=== PATIENT | male | born 1940 | race Caucasian/White ===

== ENCOUNTER 2016-08-22 07:41 | Emergency (ER) | payer MEDICARE ==
[2016-08-22 07:57] VITALS: BMI 23.6
[2016-08-22] MEDS ORDERED: MORPHINE 4 MG/ML INJECTION IV ONE (08:39)
[2016-08-22] MEDS ORDERED: NS 1,000 ML IV ONE (08:39)
--- NOTE | 2016-08-22 08:41 | EDPRACDOC ---
- General Information Chief Complaint: Shoulder Pain Stated Complaint: SHOULDER AND EAR PAIN Time Seen by Provider: 08/22/16 08:27 Mode of Arrival: Car Home Medications: Home Medications Aspirin [Chewable Aspirin] 81 mg PO . DIR SEE COMMENTS 08/02/12 Atorvastatin Calcium [Lipitor] 40 mg PO QHS 12/24/15 Carvedilol [Coreg] 6.25 mg PO BID 12/24/15 Enalapril Maleate [Vasotec] 20 mg PO BID 12/24/15 Famotidine 40 mg PO BID 12/24/15 Metformin HCl [Metformin HCl ER] 500 mg PO HS 12/24/15 Prasugrel HCl [Effient] 10 mg PO QAM 12/24/15 Cyanocobalamin (Vitamin B-12) [B-12] 1,000 mcg PO DAILY 08/22/16 Diazepam [Valium] 5 mg PO Q6 #30 tablet 08/22/16 [place]-3S/Dha/Epa/Fish Oil [Fish Oil 1,200 mg Softgel] 1 each PO DAILY 08/22/16 Oxycodone Immediate Release [Oxycodone Immediate Release (OxyIR)] 5 - 15 mg PO Q4H PRN #30 tab 08/22/16 Prednisone [Deltasone, Orasone] 10 mg PO .TAPER #42 tab 08/22/16 Allergies/Adverse Reactions: Allergies Allergy/AdvReac Type Severity Reaction Status Date / Time Penicillins Allergy Anaphylaxis Verified 08/22/16 07:57 * - History of Present Illness Onset: SAT HPI: NECK PAIN STARTING 3 DAYS AGO. RADIATES TO BILATERAL" LEADERS" TO SHOULDERS. AGGRAVATED BY MOVEMENT OF THE NECK OR EITHER SHOULDER. ALLEVIATED BY LYING PERFECTLY STILL. ASSOCIATED WITH FEVER AND DIAPHORESIS WHEN IT 1ST STARTED. NO NUMBNESS TINGLING OR WEAKNESS. BUT THE PAIN DOES SEEM TO RADIATE DOWN TOWARDS HIS BASELINE NOW. NO TRAUMA, NO SORE THROAT, NO OTHER MYALGIAS. ED Past Medical History - History Reviewed Yes Nurses notes reviewed and agree except as marked - Patient Medical History Cardiac History: Reports: Hypertension, Heart Attack, Hypercholesterolemia GI/ History: Reports: Gastroesophageal Reflux Systemic History: Reports: Diabetes. Denies: Cancer Surgical History: Reports: Other (BACK) - Social Medical History Smoking Status: Never smoker ETOH: None Substance Abuse: None Lives With: Family Lives In: Home EDM Review of Systems - Review of Systems ROS Negative Except as Marked: Yes All systems reviewed and were negative except as marked Constitutional: Fever - Physical Exam Constitutional: Alert, Distress (UNCOMFORTABLE WITH PAIN), Other (LYING VERY STILL.) Oriented to: Time, Person, Place Last recorded Vital Signs: Last Vital Signs Temp 98.1 F 08/22/16 07:48 Pulse 76 08/22/16 07:48 Resp 18 08/22/16 07:48 BP 137/83 08/22/16 07:48 Pulse Ox 98 08/22/16 07:48 Oxygen Pulse Oxygen Saturation 98 O2 Device Oxygen Flow Rate Fraction of Inspired Oxygen ( FIO2) - HEENT Head: Normal Eye Exam: Normal Oropharynx: Normal Neck: Bony Tenderness, Limited ROM (SECONDARY TO PAIN), Paraspinal Tenderness. negative: In Collar - Respiratory/Cardiovascular Respiratory: Normal - CTA Cardiovascular: Normal - GI Auscultation: Normal Palpation: Normal Tenderness: Non tender - Musculoskeletal Back: Normal. negative: Abrasion, Ecchymosis, Laceration, Thoracic Step-off, Lumbar Step-off, Thoracic TTP, Lumbar TTP Extremities: Normal - Integumentary Skin: Normal, Warm, Dry - Neurologic Memory Impaired: Normal Motor Function: Normal Mood Description: Anxious Thought: Coherent Neurologic Comment: Right Left Shoulder Abduction 5/5 5/5 Shoulder Adduction 5/5 5/5 Bicept Flexion 5/5 5/5 Tricept Extention 5/5 5/5 Wrist Dorsiflexion 5/5 5/5 Wrist Volarflexion 5/5 5/5 Hip Flexion 5/5 5/5 Hip Extension 5/5 5/5 Quad Extension 5/5 5/5 Hamstring Flexion 5/5 5/5 Foot Dorsiflexion 5/5 5/5 Foot Plantarflexion 5/5 5/5 SENSATION NORMAL OVER THE RADIAN, ULNAR, MEDIAN, AXILLARY NERVE DISTRIBUTION BILATERALLY. THE RADIAL AND ULNAR ARTERY ARE 2+ BILATERALLY. - Differential Diagnosis Other (EPIDURAL ABSCESS, DISKITIS, NEXT TIGHTENED FASCIITIS, MYOSITIS) - Re-evaluation Re-evaluation 2 Re-evaluation Time: 13:02 (PAIN CONTROLLED. PT COMFORTABLE LONG HE IS LAYING STILL.) - Results 08/22/16 08:50 08/22/16 08:50 - Diagnostic Imaging C-spine Image interpreted by: Radiologist Patient Name: MELISSA MCCORMACK JR LOC: ED : 1940 AGE: 75 Order Date:08/22/16 Date of Service: Report # [id number] Ord Physician: Olivia Ibanez MD Exam # [id number] Emergency Physician: Olivia Ibanez MD Exam(s): [id number] CT/CT NECK W/ CM CLINICAL DATA: 75-year-old male with posterior neck pain radiating inferiorly between the shoulder blades. Posterior cervical spine soft tissue edema on MRI earlier today. Initial encounter. EXAM: CT NECK WITH CONTRAST TECHNIQUE: Multidetector CT imaging of the neck was performed using the standard protocol following the bolus administration of intravenous contrast. CONTRAST: 100 mL Isovue 370 COMPARISON: Cervical spine MRI 0920 hours today. FINDINGS: The patchy abnormal STIR signal in the midline an just off midline in the upper posterior cervical soft tissues (C2 and C3) is largely an apparent on CT, the soft tissues in annotated with arrows on series 2, image 43 are affected on MRI. There is mild minimal regional fat stranding by CT, only on series 2, image 35. No subcutaneous gas. No associated fluid collection. Pharynx and larynx: Larynx and pharynx contours are within normal limits. Negative parapharyngeal and retropharyngeal spaces. Salivary glands: Sublingual space, submandibular glands, and parotid glands are within normal limits. Thyroid: Negative. Lymph nodes: No cervical lymphadenopathy. Vascular: Major vascular structures in the neck and at the skullbase are patent. There are mildly prominent posterior venous collaterals about the cervical spine again noted. The left vertebral artery is dominant. The proximal great vessels are diffusely tortuous. There is bilateral carotid atherosclerosis. Limited intracranial: Negative. Visualized orbits: Negative. Mastoids and visualized paranasal sinuses: Minimal right sphenoid sinus mucosal thickening. Left tympanic cavity and mastoids are clear. There is partially dense/ calcified abnormal opacity in the right EAC which appears to have eroded into the right mastoids (series 2, image 17). The right tympanic cavity remains largely pneumatized but there is a mild to moderate right mastoid effusion. No other mastoid bone erosion identified. No soft tissue inflammation surrounding the right mastoid. The right sigmoid sinus remains patent. Skeleton: Right mastoid bone erosion as above. Degenerative changes in the cervical spine. Absent dentition. Exaggerated upper thoracic kyphosis. Osteopenia. No acute osseous abnormality identified. Upper chest: Upper lobe pulmonary septal thickening and peripheral increased reticular opacity in both lungs. Visible Major airways are patent. No superior mediastinal lymphadenopathy. No axillary lymphadenopathy. Calcified aortic atherosclerosis. IMPRESSION: 1. Posterior upper cervical spine soft tissue inflammation seen by MRI today is largely occult on CT. Differential considerations include mild cellulitis versus granulation tissue (postoperative or posttraumatic). No subcutaneous gas. No abscess or fluid collection. 2. 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 Right mastoid effusion. Recommend ENT follow-up. 3. No other acute findings in the neck. 4. Chronic interstitial lung disease suspected. Calcified aortic and carotid atherosclerosis. Electronically Signed By: Karuna Paez M.D. On: 08/22/2016 13:45 Electronically Signed By: Karuna Paez III, MD Electronically Signed Date/Time: [id number] Dictate Date/Time: 08/22/16 1334 Technologist: Marcelino Everett Transcribed By: Sara Transcribed Date/Time: 08/22/16 1345 Patient Name: MELISSA MCCORMACK JR Courtesy Copy to: Diagnostic Imaging Report [facility] [address] [place] [address] [phone] Diagnostic Imaging Services Courtesy Copy to: Diagnostic Imaging Report Patient Name: MELISSA MCCORMACK JR LOC: ED : 1940 AGE: 75 Order Date:08/22/16 Date of Service: Report # [id number] Ord Physician: Olivia Ibanez MD Exam # [id number] Emergency Physician: Olivia Ibanez MD Exam(s): [id number] MRI/MRI CERVICAL SPINE WO/W CM CLINICAL DATA: Cervical pain with radiculopathy and fever EXAM: MRI CERVICAL SPINE WITHOUT AND WITH CONTRAST TECHNIQUE: Multiplanar and multiecho pulse sequences of the cervical spine, to include the craniocervical junction and cervicothoracic junction, were obtained according to standard protocol without and with intravenous contrast. CONTRAST: 18 mL MultiHance IV COMPARISON: MRI 08/21/2012 FINDINGS: Image quality is suboptimal due to motion. Due to cervical lordosis and inability to lay flat, the anterior neck coil was not utilized which decreases image quality. Normal cervical alignment with accentuated cervical lordosis. Negative for fracture. Soft tissue edema posteriorly in the midline at the C3 and C4 level. This shows mild enhancement and is localized to the midline. Question enhancing scar tissue. Possible posterior neck operation. This does not appear to represent a mass or abscess. Spinal cord signal normal. No cord compression. C2-3: Negative. C3-4: Disc degeneration and spurring with mild foraminal narrowing bilaterally and mild spinal stenosis. C4-5: Disc degeneration and spondylosis. Mild spinal stenosis. Bilateral facet degeneration with mild to moderate foraminal encroachment bilaterally appear C5-6: Disc and facet degeneration causing foraminal encroachment bilaterally and mild spinal stenosis C6-7: Disc and facet degeneration causing moderate foraminal encroachment bilaterally C7-T1: Negative IMPRESSION: Cervical disc degeneration and spondylosis similar to 2012 with foraminal and spinal stenosis as described above. Posterior soft tissue edema and enhancement in the midline at C3 and C4 of uncertain etiology. This does not appear to represent an abscess or tumor. This may be enhancing scar tissue from prior neck surgery. Correlate with clinical history. Electronically Signed By: Red Munoz M.D. On: 08/22/2016 11:34 Electronically Signed By: Eran Munoz Jr, MD Electronically Signed Date/Time: [id number] Dictate Date/Time: 08/22/16 1116 Technologist: Teressa Riley Transcribed By: Sara Transcribed Date/Time: 08/22/16 1134 - Additional Information PAIN OUT OF PROPORTION TO EXAM. - Departure Yes I personally saw and evaluated the patient. Disposition: Home Condition: Stable Final Diagnosis: Cervical strain, acute Instructions: Cervical Strain (ED) Referrals: Ryley Min MD [Primary Care Provider] - One Week Yony Carrion MD [Staff Physician] - 08/25/16 8:00 am Prescriptions: New Diazepam [Valium] 5 mg PO Q6 #30 tablet Oxycodone Immediate Release [Oxycodone Immediate Release (OxyIR)] 5 - 15 mg PO Q4H PRN #30 tab PRN Reason: Pain Prednisone [Deltasone, Orasone] 10 mg PO .TAPER #42 tab No Action Aspirin [Chewable Aspirin] 81 mg PO . DIR SEE COMMENTS Prasugrel HCl [Effient] 10 mg PO QAM Atorvastatin Calcium [Lipitor] 40 mg PO QHS Metformin HCl [Metformin HCl ER] 500 mg PO HS Famotidine 40 mg PO BID Carvedilol [Coreg] 6.25 mg PO BID Enalapril Maleate [Vasotec] 20 mg PO BID Cyanocobalamin (Vitamin B-12) [B-12] 1,000 mcg PO DAILY [place]-3S/Dha/Epa/Fish Oil [Fish Oil 1,200 mg Softgel] 1 each PO DAILY - Physician Consulted Surgery Time Called: 14:06 Provider Called: Yony Carrion Time Patch Driller Returned Call: 14:07 (NON INFECTOUS, INFLAMMATION, MEDROL DOSE)
[2016-08-22 09:11] LABS: AUTOMATED BASOPHIL 0.4 % (0-2); AUTOMATED EOSINOPHIL 2.4 % (0-5); AUTOMATED LYMPH 26.1 % (17-44); AUTOMATED MONOCYTE 10.7 % (3-10); AUTOMATED NEUTROPHIL 60.4 % (45-76); MPV 8.5 fL (7.4-10.4)
[2016-08-22 09:28] LABS: BLOOD UREA NITROGEN 18 MG/DL (9-20); CALC CORRECTED 9.3 MG/DL (8.4-10.2); CALCIUM 8.8 MG/DL (8.4-10.2); CALCULATED OSMOLALITY 267 MOs/Kg (270-290); CHLORIDE 100 mEq/L (98-107); CRP-QUANTITATIVE 51.8 mg/L (<10.0); GLUCOSE 156 MG/DL (70-99); SODIUM LEVEL 136 mEq/L (137-146); TOTAL PROTEIN 6.8 G/DL (6.3-8.2)
--- NOTE | 2016-08-22 11:36 | DIRPT ---
CLINICAL DATA: Cervical pain with radiculopathy and fever EXAM: MRI CERVICAL SPINE WITHOUT AND WITH CONTRAST TECHNIQUE: Multiplanar and multiecho pulse sequences of the cervical spine, to include the craniocervical junction and cervicothoracic junction, were obtained according to standard protocol without and with intravenous contrast. CONTRAST: 18 mL MultiHance IV COMPARISON: MRI 08/21/2012 FINDINGS: Image quality is suboptimal due to motion. Due to cervical lordosis and inability to lay flat, the anterior neck coil was not utilized which decreases image quality. Normal cervical alignment with accentuated cervical lordosis. Negative for fracture. Soft tissue edema posteriorly in the midline at the C3 and C4 level. This shows mild enhancement and is localized to the midline. Question enhancing scar tissue. Possible posterior neck operation. This does not appear to represent a mass or abscess. Spinal cord signal normal. No cord compression. C2-3: Negative. C3-4: Disc degeneration and spurring with mild foraminal narrowing bilaterally and mild spinal stenosis. C4-5: Disc degeneration and spondylosis. Mild spinal stenosis. Bilateral facet degeneration with mild to moderate foraminal encroachment bilaterally appear C5-6: Disc and facet degeneration causing foraminal encroachment bilaterally and mild spinal stenosis C6-7: Disc and facet degeneration causing moderate foraminal encroachment bilaterally C7-T1: Negative IMPRESSION: Cervical disc degeneration and spondylosis similar to 2013 with foraminal and spinal stenosis as described above. Posterior soft tissue edema and enhancement in the midline at C3 and C4 of uncertain etiology. This does not appear to represent an abscess or tumor. This may be enhancing scar tissue from prior neck surgery. Correlate with clinical history. Electronically Signed By: Red Munoz M.D. On: 08/22/2016 11:34
[2016-08-22] MEDS ORDERED: Pharmacy Review for Metformin - IV Contrast Given SCH (13:00)
[2016-08-22 13:03] VITALS: TEMP 98.1
[2016-08-22] MEDS ORDERED: Clindamycin 600 mg/D5W 50 ml 600 MG/50 ML IVB IV ONE (13:05)
--- NOTE | 2016-08-22 13:47 | DIRPT ---
CLINICAL DATA: 75-year-old male with posterior neck pain radiating inferiorly between the shoulder blades. Posterior cervical spine soft tissue edema on MRI earlier today. Initial encounter. EXAM: CT NECK WITH CONTRAST TECHNIQUE: Multidetector CT imaging of the neck was performed using the standard protocol following the bolus administration of intravenous contrast. CONTRAST: 100 mL Isovue 370 COMPARISON: Cervical spine MRI 0920 hours today. FINDINGS: The patchy abnormal STIR signal in the midline an just off midline in the upper posterior cervical soft tissues (C2 and C3) is largely an apparent on CT, the soft tissues in annotated with arrows on series 2, image 43 are affected on MRI. There is mild minimal regional fat stranding by CT, only on series 2, image 35. No subcutaneous gas. No associated fluid collection. Pharynx and larynx: Larynx and pharynx contours are within normal limits. Negative parapharyngeal and retropharyngeal spaces. Salivary glands: Sublingual space, submandibular glands, and parotid glands are within normal limits. Thyroid: Negative. Lymph nodes: No cervical lymphadenopathy. Vascular: Major vascular structures in the neck and at the skullbase are patent. There are mildly prominent posterior venous collaterals about the cervical spine again noted. The left vertebral artery is dominant. The proximal great vessels are diffusely tortuous. There is bilateral carotid atherosclerosis. Limited intracranial: Negative. Visualized orbits: Negative. Mastoids and visualized paranasal sinuses: Minimal right sphenoid sinus mucosal thickening. Left tympanic cavity and mastoids are clear. There is partially dense/ calcified abnormal opacity in the right EAC which appears to have eroded into the right mastoids (series 2, image 17). The right tympanic cavity remains largely pneumatized but there is a mild to moderate right mastoid effusion. No other mastoid bone erosion identified. No soft tissue inflammation surrounding the right mastoid. The right sigmoid sinus remains patent. Skeleton: Right mastoid bone erosion as above. Degenerative changes in the cervical spine. Absent dentition. Exaggerated upper thoracic kyphosis. Osteopenia. No acute osseous abnormality identified. Upper chest: Upper lobe pulmonary septal thickening and peripheral increased reticular opacity in both lungs. Visible Major airways are patent. No superior mediastinal lymphadenopathy. No axillary lymphadenopathy. Calcified aortic atherosclerosis. IMPRESSION: 1. Posterior upper cervical spine soft tissue inflammation seen by MRI today is largely occult on CT. Differential considerations include mild cellulitis versus granulation tissue (postoperative or posttraumatic). No subcutaneous gas. No abscess or fluid collection. 2. 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 Right mastoid effusion. Recommend ENT follow-up. 3. No other acute findings in the neck. 4. Chronic interstitial lung disease suspected. Calcified aortic and carotid atherosclerosis. Electronically Signed By: Karuna Paez M.D. On: 08/22/2016 13:45
[2016-08-22] MEDS ORDERED: OXYCODONE HCL 5 MG TABLET PO ONE (14:14)
[2016-08-22] MEDS ORDERED: METHYLPREDNISOLONE 125 MG/2 ML VIAL IV ONE (14:14)
[2016-08-22 15:26] VITALS: BP 165/74; PULSE 81
== END 2016-08-22 15:25 | disposition home or self-care (01) ==
LOC: ED 07:41
DX: S16.1XXA Strain of muscle, fascia and tendon at neck level, initial encounter (principal); X58.XXXA Exposure to other specified factors, initial encounter; Y93.9 Activity, unspecified
CPT/HCPCS: 36415; 70491; 72156; 80053; 82550; 83605; 85025; 85651; 86140; 87040; 96361; 96365; 96375; 99284; A9270; A9698; J2270; J2930; J3370; J3490; J7060